=== PATIENT | male | born 1955 | race Caucasian/White ===

== ENCOUNTER 2021-09-01 08:10 | Outpatient (CLI) | payer OTHER, SELFPAY ==
[2021-09-01 20:08] LABS: Hematocrit 47.6 % (42.0-52.0); Hemoglobin 15.2 g/dL (14.0-18.0); Mean Corpuscular HGB Conc 31.9 g/dl (32-36); Mean Corpuscular Hemoglobin 31.5 pg (26-34); Mean Corpuscular Volume 98.6 fl (80-100); Mean Platelet Volume 9.9 fl (7.4-10.4); Platelet Count Result 180 k/mm3 (150-375); Red Blood Count 4.83 M/mm3 (4.6-6.20); Red Cell Distribution Width 13.3 % (11.5-14.5); White Blood Count 5.9 K/mm3 (4.5-10.0)
[2021-09-01 20:28] LABS: Alanine Aminotransferase 23 U/L (6-50); Albumin Level 4.2 g/dL (3.5-5.1); Alkaline Phosphatase 79 U/L (38-126); Anion Gap 7 mmol/L (8-16); Aspartate Amino Transferase 27 U/L (17-59); Bilirubin,Total 0.7 mg/dL (0.2-1.3); Blood Urea Nitrogen 15 mg/dL (9-20); Calcium 8.8 mg/dL (8.4-10.2); Carbon Dioxide 26 mmol/L (22-30); Chloride 106 mmol/L (98-107); Cholesterol 205 mg/dL (0-200); Estimated Glomerular Filt Rate > 60; Glucose 100 mg/dL (65-110); HDL Direct 40 mg/dL; Potassium 4.5 mmol/L (3.4-5.0); Sodium 139 mmol/L (137-145); Triglycerides 369 mg/dL (<150)
[2021-09-01 20:37] LABS: LDL Cholesterol Direct 66 mg/dL
[2021-09-03 04:42] LABS: Thyroid Peroxidase Antibodies 75 IU/mL (<9)
[2021-09-04 11:31] LABS: PSA, Free 0.28 ng/mL; PSA, Total 0.8 ng/mL (<=4.0)
[2021-09-06 13:35] LABS: Testosterone Free 53.5 pg/mL (35.0-155.0); Testosterone Total 352 ng/dL (250-1100)
== END 2021-09-01 08:11 | disposition home or self-care (01) ==
PROVIDERS: PCP Family Medicine; Visit Provider Family Medicine
DX: N52.9 Male erectile dysfunction, unspecified (principal); T78.40XA Allergy, unspecified, initial encounter; Z12.5 Encounter for screening for malignant neoplasm of prostate; Z00.00 Encounter for general adult medical examination without abnormal findings; E03.9 Hypothyroidism, unspecified
CPT/HCPCS: 36415; 80053; 80061; 84153; 84154; 84402; 84403; 84443; 85027; 86376

== ENCOUNTER 2021-10-20 09:44 | Outpatient (CLI) | payer OTHER, SELFPAY ==
--- NOTE | ~2021-10-20 | XR_ITS ---
XR sinus min 3V DATE: 10/20/2021 10:03 INDICATION: Chronic congestion for one year TECHNIQUE: 5 views COMPARISON: None FINDINGS: The paranasal sinuses are normally developed and appear normally aerated. The mastoid air c ells likewise appear normally developed and aerated. IMPRESSION: Normal development and aeration of the paranasal sinuses and mastoid air cells Reviewed, dictated and finalized at location B. IMPRESSION: Normal development and aeration of the paranasal sinuses and mastoi d air cells
== END 2021-10-20 09:45 | disposition home or self-care (01) ==
LOC: ANHBWCLAB 09:46
PROVIDERS: PCP Family Medicine; Visit Provider Family Medicine
DX: J34.89 Other specified disorders of nose and nasal sinuses (principal); E03.9 Hypothyroidism, unspecified
CPT/HCPCS: 36415; 70220; 84443

== ENCOUNTER 2022-01-25 09:15 | Outpatient (CLI) | payer OTHER, SELFPAY | END 2022-01-25 09:16 | disposition home or self-care (01) | LOC: ANHBWCLAB 09:16 | PROVIDERS: PCP Family Medicine; Visit Provider Family Medicine | DX: E03.9 Hypothyroidism, unspecified (principal) | CPT/HCPCS: 36415; 84443 ==

== ENCOUNTER 2022-04-29 10:40 | Outpatient (CLI) | payer MEDICARE, SELFPAY | END 2022-04-29 10:41 | disposition home or self-care (01) | PROVIDERS: PCP Family Medicine; Visit Provider Family Medicine | DX: E03.9 Hypothyroidism, unspecified (principal) | CPT/HCPCS: 36415; 84443 ==

== ENCOUNTER 2022-07-26 08:41 | Outpatient (CLI) | payer MEDICARE, MEDICAID, SELFPAY ==
[2022-07-26 19:42] LABS: Basophils Absolute Auto 0.1 K/mm3 (0.0-0.1); Eosinophils Absolute Auto 0.3 K/mm3 (0-0.3); Eosinophils Percent Auto 3.4 % (0-4.4); Hematocrit 50.7 % (42.0-52.0); Hemoglobin 16.8 g/dL (14.0-18.0); Immature Granulocyte Absolute 0.02 K/mm3 (0.00-0.031); Immature Granulocyte Percent A 0.3 % (0-0.5); Lymphocytes Absolute Auto 1.64 K/mm3 (0.9-3.2); Lymphocytes Percent Auto 22.6 % (18.3-44.2); Mean Corpuscular HGB Conc 33.1 g/dl (32-36); Mean Corpuscular Hemoglobin 31.3 pg (26-34); Mean Corpuscular Volume 94.6 fl (80-100); Mean Platelet Volume 10.3 fl (7.4-10.4); Monocytes Absolute Auto 0.6 K/mm3 (0.1-0.6); Monocytes Percent Auto 8.7 % (2.6-8.5); Neutrophils Absolute Auto 4.7 K/mm3 (1.3-6.7); Platelet Count Result 206 k/mm3 (150-375); Red Blood Count 5.36 M/mm3 (4.6-6.20); Red Cell Distribution Width 13.4 % (11.5-14.5); White Blood Count 7.3 K/mm3 (4.5-10.0)
[2022-07-26 20:49] LABS: Vitamin D 25 Hydroxy 33.5 ng/mL
[2022-07-26 21:34] LABS: Alanine Aminotransferase 28 U/L (6-50); Albumin Level 4.7 g/dL (3.5-5.1); Alkaline Phosphatase 85 U/L (38-126); Anion Gap 10 mmol/L (8-16); Aspartate Amino Transferase 60 U/L (17-59); Bilirubin,Total 0.7 mg/dL (0.2-1.3); Blood Urea Nitrogen 20 mg/dL (9-20); Calcium 9.2 mg/dL (8.4-10.2); Carbon Dioxide 28 mmol/L (22-30); Chloride 104 mmol/L (98-107); Cholesterol 215 mg/dL (0-200); Estimated Glomerular Filt Rate > 60; Glucose 100 mg/dL (65-110); HDL Direct 39 mg/dL; Potassium 4.6 mmol/L (3.4-5.0); Sodium 142 mmol/L (137-145); Triglycerides 392 mg/dL (<150)
[2022-07-26 21:46] LABS: LDL Cholesterol Direct 96 mg/dL
[2022-07-31 15:17] LABS: Testosterone Free 45.1 pg/mL (35.0-155.0); Testosterone Total 355 ng/dL (250-1100)
== END 2022-07-26 08:42 | disposition home or self-care (01) ==
PROVIDERS: PCP Family Medicine; Visit Provider Nurse Practitioner
DX: E03.9 Hypothyroidism, unspecified (principal); I10 Essential (primary) hypertension; N52.9 Male erectile dysfunction, unspecified; Z12.5 Encounter for screening for malignant neoplasm of prostate; Z79.899 Other long term (current) drug therapy; T78.40XA Allergy, unspecified, initial encounter
CPT/HCPCS: 36415; 80053; 80061; 82306; 84153; 84402; 84403; 84443; 85025; G0103

== ENCOUNTER 2023-01-31 09:50 | Outpatient (CLI) | payer MEDICARE, MEDICAID, SELFPAY ==
[2023-01-31 19:03] LABS: Alanine Aminotransferase 25 U/L (6-50); Albumin Level 4.7 g/dL (3.5-5.1); Alkaline Phosphatase 70 U/L (38-126); Anion Gap 10 mmol/L (8-16); Aspartate Amino Transferase 70 U/L (17-59); Blood Urea Nitrogen 19 mg/dL (9-20); Calcium 9.4 mg/dL (8.4-10.2); Carbon Dioxide 28 mmol/L (22-30); Chloride 101 mmol/L (98-107); Estimated Glomerular Filt Rate > 60; Glucose 108 mg/dL (65-110); Potassium 4.2 mmol/L (3.4-5.0); Sodium 139 mmol/L (137-145)
[2023-01-31 20:15] LABS: Hematocrit 49.1 % (42.0-52.0); Hemoglobin 16.4 g/dL (14.0-18.0); Mean Corpuscular HGB Conc 33.4 g/dl (32-36); Mean Corpuscular Hemoglobin 31.4 pg (26-34); Mean Corpuscular Volume 94.1 fl (80-100); Mean Platelet Volume 10.7 fl (7.4-10.4); Platelet Count Result 190 k/mm3 (150-375); Red Blood Count 5.22 M/mm3 (4.6-6.20); Red Cell Distribution Width 12.6 % (11.5-14.5); White Blood Count 5.8 K/mm3 (4.5-10.0)
== END 2023-01-31 09:51 | disposition home or self-care (01) ==
PROVIDERS: PCP Family Medicine; Visit Provider Family Medicine
DX: E03.9 Hypothyroidism, unspecified (principal); I10 Essential (primary) hypertension; J34.89 Other specified disorders of nose and nasal sinuses; N52.9 Male erectile dysfunction, unspecified; T78.40XA Allergy, unspecified, initial encounter; Z00.00 Encounter for general adult medical examination without abnormal findings; Z12.11 Encounter for screening for malignant neoplasm of colon; Z12.12 Encounter for screening for malignant neoplasm of rectum
CPT/HCPCS: 36415; 80053; 84443; 85027

== ENCOUNTER → 2023-02-08 08:06 | Outpatient (CLI) | payer MEDICARE, SELFPAY ==
--- NOTE | ~2023-02-08 | US_ITS ---
Limited Abdominal Sonogram: Real-time sonographic imaging of the right upper quadrant was performed. Clinical History: Elevated liver transaminase levels Findings: The liver appears normal with no evidence of mass lesion or bile duct dilatation. Main por adán vein demonstrates normal direction of flow. The gallbladder is well distended, and appears normal with no evidence of gallstone or wall thickening. The common bile duct measures 5 mm. The visualize d pancreas, aorta, and IVC are unremarkable. Impression: No significant abnormality seen. Reviewed, dictated and finalized at location M. MENT MANAGEMENT SPECIALIST Impression: No significant abnormality seen.
== END ==
PROVIDERS: PCP Family Medicine; Visit Provider Family Medicine
DX: R74.01 Elevation of levels of liver transaminase levels (principal)
CPT/HCPCS: 76705

== ENCOUNTER 2023-02-08 08:54 | Outpatient (CLI) | payer MEDICARE, MEDICAID, SELFPAY ==
[2023-02-08 19:44] LABS: Hepatitis B Surface Antigen Negative (Negative)
[2023-02-08 20:02] LABS: Hepatitis C Virus Antibody Negative (Negative)
[2023-02-08 20:40] LABS: HAV RESULT Negative (Negative); Hepatitis B Core IgM Result Negative (Negative)
== END 2023-02-08 08:55 | disposition home or self-care (01) ==
PROVIDERS: PCP Family Medicine; Visit Provider Family Medicine
DX: R74.01 Elevation of levels of liver transaminase levels (principal)
CPT/HCPCS: 36415; 80074

== ENCOUNTER 2023-06-01 05:50 | Day surgery (SDC) | payer MEDICARE, SELFPAY ==
[2023-03-23 08:33] VITALS: BMI 29.5
[2023-05-18 14:00] VITALS: BMI 31.1
--- NOTE | 2023-05-31 17:41 | P.PNAN_ITS ---
Anes - Initial Pre Proc Eval Procedure: Operation Date: 06/01/23 07:30 Proposed Procedures p Diagnostic Colonoscopy - Gregg Cordero MD Date/Time: 05/31/23 17:41 Surgeon: Gregg Cordero MD Pre Op Diagnosis: Positive Cologuard test Patient Data Age: 68 Gender: M Height: 1.83 m Weight: 104 kg Allergies Allergy/AdvReac Type Severity Reaction Status Date / Time No Known Allergies Allergy Verified 06/01/23 06:08 Home Medications Medication Instructions Recorded Confirmed Type tadalafil 10 mg tablet (Cialis) 10 mg PO DAILY PRN sexual activity 10/21/21 06/01/23 Rx #30 tabs levothyroxine 50 mcg tablet 50 mcg PO DAILY #90 tabs 05/17/23 06/01/23 Rx (Synthroid) Patient hx anesthesia problems: none Family hx anesthesia problems: none Results Review: All pre-operative results and documents have been reviewed as part of the pre- operative evaluation. [facility] Past Medical History Medical History (Updated 05/31/23 @ 17:42 by Paul Ferguson DO) Hypothyroidism Family History Family History Mother Family history of arthritis Family history of diabetes mellitus in first degree relative Sibling Family history of diabetes mellitus in first degree relative Social History Social History Smoking status: Never smoker Second hand tobacco smoke exposure: No Alcohol intake: never Substance use: never Substance use type: does not use Lack of Transportation: No Lack of Food: Never True Current Housing: I Have Housing Concerned About Future Housing: No Difficulty Paying Gas/Electric Bills: No Difficulty Paying for Meds: No Currently Unemployed: No Difficulty w/ Childcare or Family Care: No Living arrangements: with family Gender identity (if verbalized by the patient): Male Sexual Orientation (if Verbalized by the Patient): Straight or Heterosexual Spiritual care concerns: No Agree to blood products: Yes Anes - Eval Final PreProcedure Day of Procedure 05/31/23 17:41 Patient weight: obese Heart: regular rate and rhythm Lungs: clear to auscultation Airway: Mallampati scale class II Neurological: alert and oriented Last oral intake: >/= 8 hours ASA classification: II Emergent: no Anesthetic plan: proceed Anesthesia type and monitoring: general GIVS and standard monitoring Results Review: All pre-operative results and documents have been reviewed as part of the pre- operative evaluation. Informed Consent: The patient's anesthetic plan and its attendant risks and benefits were discussed with the patient/family/POA. Questions were solicited and answers provided to the satisfaction of the patient/family/POA.
[2023-06-01 06:13] VITALS: BP 145/89; PULSE 75; RESP 14; TEMP 36.4; O2SAT 100
[2023-06-01] MEDS: LACTATED RINGERS 1,000 ML 150 ML IV CONT (06:24)
--- NOTE | 2023-06-01 07:09 | P.HP_ITS ---
History of Present Illness History of Present Illness Consent: Risks, benefits, and alternatives have been discussed and questions answered. Patient agrees to proceed with procedure. Chief complaint: Positive Cologuard test Narrative: Malachi Lopez is a 68 year old male presents for screening colonoscopy. Patient recently found to have positive Cologuard test. Patient denies any blood in his stools. He denies abdominal pain. He has had no bleeding. Family history is noncontributory. Review of Systems Review of Systems: Review systems is noncontributory. [facility] Past Medical History Medical History (Updated 05/31/23 @ 17:42 by Paul Ferguson DO) Hypothyroidism Family History Family History Mother Family history of arthritis Family history of diabetes mellitus in first degree relative Sibling Family history of diabetes mellitus in first degree relative Social History Social History Smoking status: Never smoker Second hand tobacco smoke exposure: No Alcohol intake: never Substance use: never Substance use type: does not use Lack of Transportation: No Lack of Food: Never True Current Housing: I Have Housing Concerned About Future Housing: No Difficulty Paying Gas/Electric Bills: No Difficulty Paying for Meds: No Currently Unemployed: No Difficulty w/ Childcare or Family Care: No Living arrangements: with family Gender identity (if verbalized by the patient): Male Sexual Orientation (if Verbalized by the Patient): Straight or Heterosexual Spiritual care concerns: No Agree to blood products: Yes Meds Home Medications and Allergies Home Medications Medication Instructions Recorded Confirmed Type tadalafil 10 mg tablet (Cialis) 10 mg PO DAILY PRN sexual activity 10/21/21 06/01/23 Rx #30 tabs levothyroxine 50 mcg tablet 50 mcg PO DAILY #90 tabs 05/17/23 06/01/23 Rx (Synthroid) Allergies Allergy/AdvReac Type Severity Reaction Status Date / Time No Known Allergies Allergy Verified 06/01/23 06:08 Vital Signs Vital Signs - 24 hr 06/01/23 06:13 Temperature 97.5 F L Pulse Rate 75 Respiratory Rate 14 Blood Pressure 145/89 H Pulse Oximetry 100 Oxygen Delivery Room Air Exam Narrative: Physical exam reveals patient to be alert. Vital signs stable. HEENT exam is unremarkable. Patient is anicteric. Lungs are clear to auscultation and to percussion. Heart is without murmur or extra sounds. Abdomen bowel sounds are present soft nontender with no organomegaly. Digital external rectal exam is normal. Assessment and Plan Assessment and plan (1) Positive colorectal cancer screening using Cologuard test: Code(s): R19.5 - Other fecal abnormalities Status: Acute Assessment and Plan: Patient had positive Cologuard test. Screening colonoscopy will be performed to evaluate for possible polyps.
[2023-06-01 07:49] VITALS: BP 110/67; PULSE 61; RESP 16; O2SAT 98
[2023-06-01 07:59] VITALS: BP 127/82; PULSE 61; RESP 16; O2SAT 99
[2023-06-01 08:09] VITALS: BP 126/90; PULSE 60; RESP 20; O2SAT 100
--- NOTE | 2023-06-01 12:28 | WPDANESPN ---
Anes - Prog Note Post-Op Date/Time: 06/01/23 12:28 Cardiovascular status: normal Respiratory status: normal Airway patency: baseline Mental status: baseline Post-Op hydration status: normal Vital Signs: Last Vital Signs Temp 36.4 C L 06/01/23 06:13 Pulse 60 06/01/23 08:09 Resp 20 06/01/23 08:09 BP 126/90 06/01/23 08:09 Pulse Ox 100 06/01/23 08:09 O2 Del Method Room Air 06/01/23 08:09 Pain Score (VAS): 0 I/O: Intake & Output 05/31/23 06/01/23 06/01/23 23:59 07:59 15:59 Intake Total 550 50 Balance 550 50 Post-procedural complaints: none Patient Feedback: Patient satisfied with anesthetic care. Other Findings: Patient vital signs back to baseline. Patient denies nausea and vomiting. Patient's pain under control. Patient OK for discharge.
== END 2023-06-01 08:24 | disposition home or self-care (01) ==
PROVIDERS: PCP Family Medicine; Visit Provider Internal Medicine Gastroenterology
PROC: 0DJD8ZZ Inspection of Lower Intestinal Tract, Via Natural or Artificial Opening Endoscopic (ICD-10-PCS; CPT 45378; principal; 2023-06-01 07:30)
DX: R19.5 Other fecal abnormalities (principal); D12.5 Benign neoplasm of sigmoid colon; D12.4 Benign neoplasm of descending colon; K64.8 Other hemorrhoids
CPT/HCPCS: 45385

== ENCOUNTER 2023-06-01 14:27 | Outpatient (NON) | payer MEDICARE, SELFPAY | END 2023-06-01 14:28 | disposition home or self-care (01) | LOC: ANHLAB 14:28 | PROVIDERS: PCP Family Medicine; Visit Provider Surgery Plastic and Reconstructive Surgery | DX: Z00.00 Encounter for general adult medical examination without abnormal findings (principal) | CPT/HCPCS: 88305 ==

== ENCOUNTER 2023-08-01 09:31 | Outpatient (CLI) | payer MEDICARE, SELFPAY ==
[2023-08-01 19:49] LABS: Hematocrit 48.1 % (42.0-52.0); Hemoglobin 16.1 g/dL (14.0-18.0); Mean Corpuscular HGB Conc 33.5 g/dl (32-36); Mean Corpuscular Hemoglobin 31.8 pg (26-34); Mean Corpuscular Volume 94.9 fl (80-100); Mean Platelet Volume 10.1 fl (7.4-10.4); Platelet Count Result 202 k/mm3 (150-375); Red Blood Count 5.07 M/mm3 (4.6-6.20); Red Cell Distribution Width 12.9 % (11.5-14.5); White Blood Count 5.8 K/mm3 (4.5-10.0)
[2023-08-01 20:01] LABS: Alanine Aminotransferase 22 U/L (6-50); Albumin Level 4.7 g/dL (3.5-5.1); Alkaline Phosphatase 76 U/L (38-126); Anion Gap 9 mmol/L (4-12); Aspartate Amino Transferase 67 U/L (17-59); Bilirubin,Total 0.8 mg/dL (0.2-1.3); Blood Urea Nitrogen 22 mg/dL (9-20); Calcium 9.2 mg/dL (8.4-10.2); Carbon Dioxide 24 mmol/L (22-30); Chloride 105 mmol/L (98-107); Cholesterol 238 mg/dL (0-200); Estimated Glomerular Filt Rate > 60; Glucose 100 mg/dL (65-110); HDL Direct 41 mg/dL; Potassium 4.4 mmol/L (3.4-5.0); Sodium 138 mmol/L (137-145); Triglycerides 169 mg/dL (<150)
[2023-08-01 20:11] LABS: LDL Cholesterol Direct 142 mg/dL
[2023-08-01 20:17] LABS: Vitamin D 25 Hydroxy 49.7 ng/mL
[2023-08-01 20:18] LABS: Free T4 Free Thyroxine 0.99 ng/mL (0.78-2.19)
[2023-08-01 20:31] LABS: Prostate Specific Antigen 1.3 ng/mL (< OR = 4.0)
[2023-08-04 13:28] LABS: Testosterone Free 49.8 pg/mL (35.0-155.0); Testosterone Total 408 ng/dL (250-1100)
== END 2023-08-01 09:32 | disposition home or self-care (01) ==
PROVIDERS: PCP Family Medicine; Visit Provider Family Medicine
DX: Z12.5 Encounter for screening for malignant neoplasm of prostate (principal); E03.9 Hypothyroidism, unspecified; I10 Essential (primary) hypertension; N52.9 Male erectile dysfunction, unspecified; R74.01 Elevation of levels of liver transaminase levels; T78.40XA Allergy, unspecified, initial encounter; E07.9 Disorder of thyroid, unspecified; Z79.899 Other long term (current) drug therapy; X58.XXXA Exposure to other specified factors, initial encounter
CPT/HCPCS: 36415; 80053; 80061; 82306; 84153; 84402; 84403; 84439; 84443; 85027; G0103

== ENCOUNTER 2024-02-07 12:18 | Outpatient (CLI) | payer MEDICARE, SELFPAY ==
--- NOTE | ~2024-02-07 | XR_ITS ---
EXAMINATION: XR shoulder LT min 2V DATE: 02/07/2024 12:40 INDICATION: Left shoulder pain. TECHNIQUE: 4 views of left shoulder were obtained. COMPARISON: None. FINDINGS: Alignment is normal. No fracture. There is mild osteoarthritis of glenohumeral joint and se germaine osteoarthritis of acromioclavicular joint. IMPRESSION: 1. Polyarticular osteoarthritis. Reviewed, dictated and finalized at location A. K SUPERVISOR
[2024-02-07 19:11] LABS: Hematocrit 47.1 % (42.0-52.0); Hemoglobin 16.4 g/dL (14.0-18.0); Mean Corpuscular HGB Conc 34.8 g/dl (32-36); Mean Corpuscular Hemoglobin 32.4 pg (26-34); Mean Corpuscular Volume 93.1 fl (80-100); Platelet Count Result 194 k/mm3 (150-375); Red Blood Count 5.06 M/mm3 (4.6-6.20); Red Cell Distribution Width 12.7 % (11.5-14.5); White Blood Count 6.6 K/mm3 (4.5-10.0)
[2024-02-07 19:32] LABS: Alanine Aminotransferase 21 U/L (6-50); Albumin Level 4.7 g/dL (3.5-5.1); Alkaline Phosphatase 65 U/L (38-126); Anion Gap 5 mmol/L (4-12); Aspartate Amino Transferase 68 U/L (17-59); Bilirubin,Total 1.1 mg/dL (0.2-1.3); Blood Urea Nitrogen 16 mg/dL (9-20); Calcium 9.4 mg/dL (8.4-10.2); Carbon Dioxide 31 mmol/L (22-30); Chloride 101 mmol/L (98-107); Estimated Glomerular Filt Rate > 60; Glucose 94 mg/dL (65-110); Potassium 4.6 mmol/L (3.4-5.0); Sodium 137 mmol/L (137-145)
[2024-02-07 19:42] LABS: Vitamin D 25 Hydroxy 47.9 ng/mL
== END 2024-02-07 12:19 | disposition home or self-care (01) ==
PROVIDERS: PCP Family Medicine; Visit Provider Family Medicine
DX: E03.9 Hypothyroidism, unspecified (principal); I10 Essential (primary) hypertension; N52.9 Male erectile dysfunction, unspecified; R09.89 Other specified symptoms and signs involving the circulatory and respiratory systems; T78.40XA Allergy, unspecified, initial encounter; Z00.00 Encounter for general adult medical examination without abnormal findings; E55.9 Vitamin D deficiency, unspecified; M19.012 Primary osteoarthritis, left shoulder
CPT/HCPCS: 36415; 73030; 80053; 82306; 84443; 85027

== ENCOUNTER 2024-08-16 08:51 | Outpatient (CLI) | payer MEDICARE, SELFPAY ==
--- OUTSIDE RECORDS SUMMARY | 2024-08-16 09:20 | XMS_ITS | Referral Summary ---
Author Organization [facility] Address [address] [place] [address] Care Team Providers Care Electric Track Switch Maintainer Name Role Phone No, Physician Primary Care Provider Allergies No known active allergies Medications levothyroxine (SYNTHROID) 50 mcg tablet Take 50 mcg by mouth daily 2 Active fluticasone propionate (FLONASE) 50 mcg/actuation nasal spray Administer 1-2 sprays into affected nostril(s) daily Active budesonide (PULMICORT) 0.5 mg/2 mL nebulizer solutionIndicat ions:Chronic maxillary sinusitis Mix budesnoide 2ml with 20 cc saline, instill 10 cc to each nostril once daily 60 mL 2 2 Active Active Problems Problem Noted Date Diagnosed Date Multiple-type hyperlipidemia 07/28/2013 Overview (06/18/2016): MIXED HYPERLIPIDEMIA Social History Tobacco Use Types Packs/Day Years Used Date Smoking Tobacco: Never Alcohol Use Standard Drinks/Week Comments No 0 (1 standard drink = 0.6 oz pur e alcohol) AUDIT-C Answer Date Recorded Q1: How often do you have a drink containing alcohol? Never 10/30/2021 Q2: How many drinks containi ng alcohol do you have on a typical day when you are drinking? Patient does not drink Q3: How often do you have si x or more drinks on one occasion? 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 Gender Identity Not on file Sexual Orientation Not on file Last Filed Vital Signs Vital Sign Reading Time Taken Comments Blood Pressure 163/81 10/30/2021 9:57 AM CDT Pulse 78 10/30/2021 9:57 AM CDT Temperature 36.4 C (97.5 F) 12/19/2018 7:23 AM CDT Respiratory Rate 20 10/30/2021 9:57 AM CDT Oxygen Saturation 97% 10/30/2021 9:57 AM CDT Inhaled Oxygen Concentration - - Weight 102.1 kg (225 lb) 10/30/2021 9:57 AM CDT Height 182.9 cm (6') 10/30/2021 9:57 AM CDT Body Mass Index 30.52 10/30/2021 9:57 AM CDT Plan of Treatment Not on file Insurance [facility] Care Teams Electric Track Switch Maintainer Relationship Specialty Start Date End Date No, Physician PCP - General 12/19/18
--- OUTSIDE RECORDS SUMMARY | 2024-08-16 09:20 | XMS_ITS | Continuity of Care Document ---
Author Organization [facility] Address [address] [place] [address] [place] [address] Phone Care Team Providers Care Ocean Clam Boat Captain Name Role Phone Howard ARGUETA, Jonathan Unavailable [...] Diagnoses Date Provider Providers Copied on Encounter [facility], [address] [place], [place], [address], [place] tel:[phone] [facility] No Information 4 Howard Castillo. [address], [address] [place], [place], [address] , [place]. tel:[phone] Referring Provider: Jonathan Lawrence [address] [facility] [place], [address]. tel:[phone] PREV VISIT, EST, AGE 40-64 [facility], [address] [place], [place], [address], [place] tel:[phone] [facility] Medicine Physical (chief complaint) Routine Medical ExamDietary surveillance and counselingHyper tension, UnspecifiedOthe r and unspecified hyperlipidemiaR outine Medical Exam 4 Howard Castillo. [address], [address] [place], [address] , [place]. tel:[phone] Referring Provider: Tracy Marcum [address], [place], [place], [address]. tel:[phone] PREV VISIT, EST, AGE 40-64 [facility], [address], [place], [place], [address], [place] tel:[phone] [facility] Physical (chief complaint) Dietary surveillance and counselingRouti ne Medical ExamRoutine Medical Exam 3 Howard Castillo. [address], [place], [place], [address] , [place]. [phone] Referring Provider: Tracy Marcum [address], [place], [place], [address]. tel:[phone] OFFICE/OUTPA TIENT VISIT, [facility], [address], [place], [place], [address], [place] tel:[phone] [facility] sinus symptoms (chief complaint) Dietary surveillance and counselingSinus itis, Acute 2 Howard Castillo. [address], [place], [place], [address] , [place]. tel:[phone] Referring Provider: Tracy Marcum [address], [place], [place], [address]. tel:[phone] OFFICE/OUTPA TIENT VISIT, EST [facility], [address], [place], [place], [address], [place] tel:[phone] [facility] hypertension (chief complaint)low testersterone (chief complaint)hypo thyroidism (chief complaint) Dietary surveillance and counselingHyper tension, UnspecifiedOthe r specified acquired hypothyroidismO ther and unspecified hyperlipidemia 2 Howard Castillo. [address], [place], [place], [address] , [place]. [phone] Referring Provider: Tracy Marcum [address], [place], [place], [address]. tel:[phone] Family History Family Member Type Diagnosis Age At Onset Mother Problem (finding) Diabetes mellitus Father Problem (finding) Coronary artery disease Brother Problem (finding) Alive and well Payers Payer name Insurance type Covered alliance party ID Authorjasona ticristin(s) No Information Social History [...]
--- OUTSIDE RECORDS SUMMARY | 2024-08-16 09:20 | XMS_ITS | Clinical Summary ---
Author Organization [facility] Address [address], [address] [address] Phone Care Team Providers Care Piping Blocker Name Role Phone Jacobo Jeronimo MD Primary Care Provider [phone] Curt Herrera MD Unavailable [phone] Allergies No known active allergies Medications levothyroxine (SYNTHROID) 100 MCG Tablet Take by mouth. Active Active Problems Problem Noted Date Diagnosed Date Acquired stenosis of both external ear canals Conductive hearing loss, external ear 11/15/2018 Impacted cerumen, bilateral 11/15/2018 Chronic otitis externa Dermatitis Family History Medical History Relation Name Comments Heart Attack Father Relation Name Status Comments Father Mother Social History Tobacco Use Types Packs/Day Years Used Date Smoking Tobacco: Never Smokeless Tobacco: Never Tobacco Cessation:Counseling Given: Not Answered Alcohol Use Standard Drinks/Week Comments Never 0 (1 standard drink = 0.6 oz pur e alcohol) AUDIT-C Answer Date Recorded Frequency of Alcohol Consumption Never 11/15/2018 Average Number of Drinks Not on file 019 Frequency of Binge Drinking Not on file 06/2018 Sex and Gender Information Value Date Recorded Sex Assigned at Not on file Legal Sex Male 11:35 PM CDT Gender Identity Not on file Sexual Orientation Not on file Last Filed Vital Signs Vital Sign Reading Time Taken Comments Blood Pressure 130/84 07/29/2022 9:06 AM CDT Pulse 80 07/29/2022 9:06 AM CDT Temperature 36.2 C (97.2 F) 07/29/2022 9:06 AM CDT Respiratory Rate 17 07/29/2022 9:06 AM CDT Oxygen Saturation 96% 07/29/2022 9:06 AM CDT Inhaled Oxygen Concentration - - Weight 101.7 kg (224 lb 3.2 oz) 07/29/2022 9:06 AM CDT Height 182.9 cm (6') 07/29/2022 9:06 AM CDT Body Mass Index 30.41 07/29/2022 9:06 AM CDT Plan of Treatment Health Maintenance Due Date Last Done Comments Hepatitis C Virus (HCV) Screening 1957 TdaP Immunization 1957 Colonoscopy 2002 Colorectal Cancer Screening 2002 Cologuard 2007 Immunochemical Fecal Occult Blood 2007 Pneumococcal Immunization (5 0+ years) (1 of 1 - PCV) 2007 Zoster Immunization (1 of 2) 2007 PSA Discussion 2012 SARS-COV-2 Immunization ( - 2023- season) 2023 Influenza Immunization (Seas on Ended) 2024 Respiratory Syncytial Virus (RSV) Immunization (Adult) (1 - 1-dose 75+ series) 2032 Hepatitis B Immunization Aged Out No longer eligible based on patient's age to complete this topic Human Papillomavirus (HPV) Immunization Aged Out No longer eligible b ased on patient's age to complete this topic Meningococcal Immunization (ACWY) Aged Out No longer eligible based on patient's age to complete this topic Rotavirus Immunization Aged Out No lo nger eligible based on patient's age to complete this topic Insurance [facility]IC[facility] [place] Care Teams Piping Blocker Relationship Specialty Start Date End Date Jacobo Jeronimo MD [address] [place] [address] PCP - General Family Medicine 11/04/21 Curt Herrera MD [address] [place] [id number] Consulting Physician Neurology 07/29/22
--- OUTSIDE RECORDS SUMMARY | 2024-08-16 09:20 | XMS_ITS | Clinical Summary ---
Author Organization [facility] Address [address] [place] [address] Care Team Providers Care Driving School Instructor Name Role Phone No, Physician Primary Care Provider [phone] Allergies No known active allergies Medications levothyroxine [...] Multiple-type hyperlipidemia 07/28/2013 Overview (06/18/2016): MIXED HYPERLIPIDEMIA Medical History Medical History Date Comments Hyperlipidemia Hyperlipidemia Family History Medical History Relation Name Comments Arthritis Father 2 Arthritis; Coronary artery disease Father 2 Gabriel nary artery disease; Cause of : Coronary artery disease Heart attack Father 2 Myocardial infa rction; Cause of : Myocardial infarction Hyperlipidemia Father 2 Hyperlipidemi a; Diabetes Mother 2 Diabetes mellit us; Diabetes type II Mother 2 Diabetes -T ype II; Hypertension Mother 2 Hypertension; Relation Name Status Comments Father 1 Alive Father 2 Mother 1 Alive Mother 2 Social History Tobacco Use Types Packs/Day Years [...] on file 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 Gender Identity Not on file Sexual Orientation Not on file Obstetrics History Last Filed Vital Signs Vital Sign Reading [...] 10/30/2021 9:57 AM CDT Plan of Treatment Health Maintenance Due Date Last Done Comments Colon Cancer Screening-Colonoscopy 1957 Depression Screening 1957 Fall Risk Assessment 1957 Hepatitis C Screening 1957 Prostate Cancer Screening-PSA 1957 DTaP/Tdap/Td Vaccine (1 - Tdap) 1968 Hepatitis B Screening 1975 Pneumococcal vaccine 65+ (1 of 1 - PCV) 2007 Zoster Vaccine (1 of 2) 2007 Abdominal Aortic Aneurysm (AAA) Screen 2022 Well Visit 65+ 2022 Influenza Vaccine (Season Ended) 2024 Insurance [place] [employer] [facility] Care Teams Driving School Instructor Relationship Specialty Start Date End Date No, Physician PCP - General 12/19/18
[2024-08-16 20:30] LABS: Alanine Aminotransferase 25 U/L (6-50); Albumin Level 4.3 g/dL (3.5-5.1); Alkaline Phosphatase 72 U/L (38-126); Anion Gap 8 mmol/L (4-12); Aspartate Amino Transferase 65 U/L (17-59); Bilirubin,Total 0.8 mg/dL (0.2-1.3); Blood Urea Nitrogen 18 mg/dL (9-20); Calcium 9.3 mg/dL (8.4-10.2); Carbon Dioxide 25 mmol/L (22-30); Chloride 104 mmol/L (98-107); Cholesterol 220 mg/dL (0-200); Estimated Glomerular Filt Rate > 60; Glucose 101 mg/dL (65-110); HDL Direct 39 mg/dL; LDL Cholesterol Direct 100 mg/dL; Potassium 4.3 mmol/L (3.4-5.0); Sodium 137 mmol/L (137-145); Total Protein 7.5 g/dL (6.3-8.2); Triglycerides 272 mg/dL (<150)
[2024-08-16 20:34] LABS: Basophils Absolute Auto 0.1 K/mm3 (0.0-0.1); Eosinophils Absolute Auto 0.1 K/mm3 (0-0.3); Eosinophils Percent Auto 1.9 % (0-4.4); Hemoglobin 15.7 g/dL (14.0-18.0); Immature Granulocyte Absolute 0.02 K/mm3 (0.00-0.031); Immature Granulocyte Percent A 0.3 % (0-0.5); Lymphocytes Absolute Auto 1.75 K/mm3 (0.9-3.2); Mean Corpuscular HGB Conc 32.7 g/dl (32-36); Mean Corpuscular Hemoglobin 31.1 pg (26-34); Mean Platelet Volume 10.4 fl (7.4-10.4); Monocytes Absolute Auto 0.5 K/mm3 (0.1-0.6); Monocytes Percent Auto 8.7 % (2.6-8.5); Neutrophils Absolute Auto 3.8 K/mm3 (1.3-6.7); Neutrophils Percent Auto 60.1 % (45.5-73.1); Platelet Count Result 192 k/mm3 (150-375); Red Blood Count 5.05 M/mm3 (4.6-6.20); Red Cell Distribution Width 13.1 % (11.5-14.5); White Blood Count 6.2 K/mm3 (4.5-10.0)
[2024-08-16 20:51] LABS: Prostate Specific Antigen 1.1 ng/mL (< OR = 4.0)
[2024-08-16 22:13] LABS: Vitamin D 25 Hydroxy 32.6 ng/mL
[2024-08-21 18:58] LABS: Apolipoprotein B 125 mg/dL
== END 2024-08-16 08:52 | disposition home or self-care (01) ==
LOC: ANHBWCLAB 08:53
PROVIDERS: PCP Family Medicine; Visit Provider Family Medicine
DX: N52.9 Male erectile dysfunction, unspecified (principal); Z79.899 Other long term (current) drug therapy; I10 Essential (primary) hypertension; E03.9 Hypothyroidism, unspecified; R74.01 Elevation of levels of liver transaminase levels; Z00.00 Encounter for general adult medical examination without abnormal findings; Z12.5 Encounter for screening for malignant neoplasm of prostate
CPT/HCPCS: 36415; 80053; 80061; 82172; 82306; 84153; 84443; 85025; G0103

== ENCOUNTER 2024-11-14 10:04 | Outpatient (CLI) | payer MEDICARE, SELFPAY ==
--- OUTSIDE RECORDS SUMMARY | 2024-11-14 11:12 | XMS_ITS | Clinical Summary ---
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
--- OUTSIDE RECORDS SUMMARY | 2024-11-14 11:12 | XMS_ITS | Clinical Summary ---
Author Organization [facility] Address [address], [address] [address] Phone Care Team Providers Care Procurement Analyst Name Role Phone Jacobo Jeronimo MD Primary Care Provider [phone] Curt Herrera MD Unavailable [phone] Allergies No known active allergies Medications levothyroxine [...] Virus (HCV) Screening 1957 TdaP Immunization 1957 Cologuard 2002 Colonoscopy 2002 Colorectal Cancer Screening 2002 Immunochemical Fecal Occult Blood 2002 Pneumococcal Immunization (5 0+ years) (1 of 1 - PCV) 2007 Zoster Immunization (1 of 2) 2007 PSA Discussion 2012 Influenza Immunization (#1) 2024 SARS-COV-2 Immunization (1 - 2023-25 season) 2024 Respiratory Syncytial Virus (RSV) Immunization (Adult) [...] to complete this topic Insurance [facility] [place] Care Teams Procurement Analyst Relationship Specialty Start Date End Date Jacobo Jeronimo MD PCP - General Family Medicine 11/04/21 Curt Herrera MD [address] [place] [address] Consulting Physician Neurology 07/29/22
[2024-11-14 19:13] LABS: Thyroid Stimulating Hormone 3.980 uIU/mL (0.465-4.680)
== END 2024-11-14 10:05 | disposition home or self-care (01) ==
LOC: ANHBWCLAB 10:05
PROVIDERS: PCP Family Medicine; Visit Provider Family Medicine
DX: E03.9 Hypothyroidism, unspecified (principal)
CPT/HCPCS: 36415; 84443

== ENCOUNTER 2024-11-29 11:03 | Outpatient (CLI) | payer MEDICARE, SELFPAY ==
--- OUTSIDE RECORDS SUMMARY | 2013-11-05 07:04 | XMS_ITS | Continuity of Care Document ---
Author Organization [facility] Address [address] [place] [address] [place] [address] Phone Care Team Providers Care Manufacturing Specialist Name Role Phone Howard ARGUETA, Jonathan Unavailable Unavailable Allergies, Adverse Reactions, Alerts Substance Reaction Status Criticality No Known Allergies Active No Inform ation Procedures Procedure Date PREV VISIT, EST, AGE 40-64 OFFICE/OUTPATIENT VISIT, EST PREV VISIT, EST, AGE 40-64 OFFICE/OUTPATIENT VISIT, EST OFFICE/OUTPATIENT VISIT, EST Advance Directives Directive Yes / No Effective Date File Name No Information Encounters Encounter Description Practice Location Reason(s) For Visit Diagnoses Date Provider Providers Copied on Encounter [facility], [address] [place], [place], [address], [place] tel:[phone] [facility] No Information 4 Howard Castillo. [address], [address] , [place]. tel:[phone] Referring Provider: Jonathan Lawrence [address] [facility] [place], [address]. tel:[phone] PREV VISIT, EST, AGE 40-64 [facility], [address] [place], [address], [place] tel:[phone] [facility] Medicine Physical (chief complaint) Routine Medical ExamDietary surveillance and counselingHyper tension, UnspecifiedOthe r and unspecified hyperlipidemiaR outine Medical Exam 4 Howard Castillo. [address], [address], [address] , [place]. tel:[phone] Referring Provider: Tracy Marcum [address], [place], [place], [address]. tel:[phone] PREV VISIT, EST, AGE 40-64 [facility], [address], [place], [place], [address], [place] tel:[phone] [facility] Physical (chief complaint) Dietary surveillance and counselingRouti ne Medical ExamRoutine Medical Exam 3 Howard Castillo. [address], [address], [place], [place], [address] , [place]. [phone] Referring Provider: Tracy Marcum [address], [place], [place], [address]. tel:[phone] OFFICE/OUTPA TIENT VISIT, [facility], [address], [place], [place], [address], [place] tel:[phone] [facility] sinus symptoms (chief complaint) Dietary surveillance and counselingSinus itis, Acute 2 Howard Castillo. [address], [address], [place], [place], [address] , [place]. tel:[phone] Referring Provider: Tracy Marcum [address], [place], [place], [address]. tel:[phone] OFFICE/OUTPA TIENT VISIT, EST [facility], [address], [place], [place], [address], [place] tel:[phone] [facility] hypertension (chief complaint)low testersterone (chief complaint)hypo thyroidism (chief complaint) Dietary surveillance and counselingHyper tension, UnspecifiedOthe r specified acquired hypothyroidismO ther and unspecified hyperlipidemia 2 Howard Castillo. [address], [address], [place], [place], [address] , [place]. [phone] Referring Provider: Tracy Marcum [address], [place], [place], [address]. tel:[phone] Family History Family Member Type Diagnosis Age At Onset Mother Problem (finding) Diabetes mellitus Father Problem (finding) Coronary artery disease Brother Problem (finding) Alive and well Payers Payer name Insurance type Covered democrat ID Authorjasona ticristin(s) No Information Social History Type Description Quantity Date Captured Comments Sex Male Smoking Status No Information Chief Complaint And Reason For Visit No Information Plan Of Treatment Date Type Action Status Goal Tobacco cessation counseling completed History Of Present Illness Encounter Date Complaint History Of Prese nt Illness No Information Instructions Date Instruction Additional Infor mation Decrease caloric intake Related to Dietary surveillance counseling Dietary counseling Related to Di etary surveillance counseling Dietary counseling Related to Di etary surveillance counseling Decrease caloric intake Related to Dietary surveillance counseling Decrease caloric intake Related to Dietary surveillance counseling Dietary counseling Related to Di etary surveillance counseling Decrease caloric intake Related to Dietary surveillance counseling Dietary counseling Related to Di etary surveillance counseling Assessments Type Assessment Date No Information
--- NOTE | ~2024-11-29 | XR_ITS ---
EXAMINATION: XR knee RT 3V, 11/29/2024 11:05 CDT HISTORY: Right knee pain, no known recent injury COMPARISON: No comparisons available. Findings: No acute fracture or malalignment. No significant degenerative changes. Soft tissues unremarkable. Impression: No acute fracture or malalignment. Reviewed, dictated and finalized at location A. Impression: No acute fracture or malalignment.
--- OUTSIDE RECORDS SUMMARY | 2024-11-29 11:38 | XMS_ITS | Clinical Summary ---
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
--- OUTSIDE RECORDS SUMMARY | 2024-11-29 11:38 | XMS_ITS | Clinical Summary ---
Author Organization [facility] Address [address], [address] [address] Phone Care Team Providers Care Director Of [facility] Name Role Phone Jacobo Jeronimo MD Primary Care Provider [phone] Curt Herrera MD Unavailable [phone] Allergies No known active allergies Medications levothyroxine [...] to complete this topic Insurance MEDICARE C [employer] [facility] [place] Care Teams Director Of [facility] Relationship Specialty Start Date End Date Jacobo Jeronimo MD PCP - General Family Medicine 11/04/21 Curt Herrera MD [address] [place] [address] Consulting Physician Neurology 07/29/22
== END 2024-11-29 11:04 | disposition home or self-care (01) ==
PROVIDERS: PCP Family Medicine; Visit Provider Family Medicine
DX: M25.561 Pain in right knee (principal)
CPT/HCPCS: 73562